=== PATIENT | male | born 2000 | race African-American/Black ===

== ENCOUNTER 2021-02-15 22:23 | Emergency (ER) | payer SELFPAY ==
[~2021-02-15] VITALS: Ht 185.4 cm; Wt 88.6 kg
[2021-02-15 22:40] VITALS: BP 160/86; TEMP 97.9
[2021-02-15 23:17] VITALS: PULSE 59
== END 2021-02-15 23:22 | disposition home or self-care (01) ==
LOC: COL.ER 22:23
DX: S01.511A Laceration without foreign body of lip, initial encounter (principal); W01.10XA Fall on same level from slipping, tripping and stumbling with subsequent striking against unspecified object, initial encounter

== ENCOUNTER → 2021-11-11 | Outpatient (CLI) | payer OTHER | LOC: ZCOL.LAB 08:00 | DX: Z20.822 Contact with and (suspected) exposure to COVID-19 (principal) ==